=== PATIENT | male | born 1940 | race Two or more races ===

== ENCOUNTER 2024-10-31 12:27 | Inpatient (IN) | payer MEDICARE, OTHER ==
[~2024-10-31] VITALS: Ht 175.3 cm; Wt 97.5 kg
[2024-10-31] MEDS ORDERED: FUROSEMIDE 100 MG/10 ML VIAL ONE (13:02)
[2024-10-31 13:08] LABS: BASOPHILS % (AUTO) 0.3 % (0.0-2.0); HEMATOCRIT 46 % (39-51); HEMOGLOBIN 14.6 g/dL (13.5-17.5); LYMPHOCYTES # (AUTO) 0.5 K/uL (0.8-4.8); LYMPHOCYTES % (AUTO) 7.4 % (20.0-44.0); MEAN CORPUSCULAR HEMOGLOBIN 30 PG (26.0-33.0); MEAN CORPUSCULAR HGB CONC 32 g/dl (31.0-36.0); MEAN CORPUSCULAR VOLUME 92 fL (80-96); MONOCYTES # (AUTO) 0.6 K/uL (0.1-1.30); MONOCYTES % (AUTO) 8.6 % (2.0-12.0); NEUTROPHILS # (AUTO) 5.6 K/uL (1.8-8.9); NEUTROPHILS % (AUTO) 83.7 % (43.0-81.0); PLATELET COUNT (AUTO) 224 K/uL (150-450); RED BLOOD CELL COUNT(AUTO) 4.93 MIL/uL (4.5-6.0); RED CELL DISTRIBUTION WIDTH 16.5 % (11.5-15.0); WHITE BLOOD COUNT (AUTO) 6.7 K/uL (4.3-11.0)
[2024-10-31] MEDS: FUROSEMIDE 40 MG/4 ML VIAL IV ONE (13:17)
[2024-10-31 13:26] LABS: INR 1.09 (0.91-1.10); PARTIAL THROMBOPLASTIN TIME 27.7 SEC (24.3-34.3); PROTHROMBIN TIME 11.5 SECS (9.2-11.1)
[2024-10-31 13:49] LABS: ABG BASE EXCESS 5.6 mmol/L (-2.0-3.0); ABG OXYGEN SATURATION 93.5 % (94.0-98.0); ABG PCO2 69.5 mmHg (35.0-48.0); ABG PH 7.313 (7.350-7.450); ABG PO2 74.9 mmHg (83.0-108.0); COHb 1.2 % (0.5-1.5); MetHb 0.3 % (0.0-1.5); O2Hb 92.1 % (94.0-97.0)
[2024-10-31 14:02] LABS: ALANINE AMINOTRANSFERASE 21 U/L (12-78); ALBUMIN 3.5 g/dL (3.4-5.0); ALKALINE PHOSPHATASE 104 U/L (46-116); ASPARTATE AMINOTRANSFERASE 23 U/L (15-37); BILIRUBIN,DIRECT 0.2 mg/dL (0.0-0.2); BILIRUBIN,TOTAL 0.7 mg/dL (0.2-1.0); CALCIUM, SERUM 9.2 mg/dL (8.5-10.1); CARBON DIOXIDE 35 mmol/L (21-32); CHLORIDE 99 mmol/L (98-107); CREATININE 1.3 mg/dL (0.6-1.3); GLUCOSE 173 mg/dL (74-106); NT-PRO BNP 2679 pg/mL (0-125); POTASSIUM 4.9 mmol/L (3.5-5.1); SODIUM SERUM 137 mmol/L (136-145); TOTAL PROTEIN, SERUM 7.2 g/dL (6.4-8.2); UREA NITROGEN, BLOOD 18 mg/dL (7-18)
[2024-10-31] MEDS ORDERED: LEVO125T PO (17:31)
[2024-10-31] MEDS ORDERED: APIX5TAB PO (17:31)
[2024-10-31] MEDS ORDERED: DILT120C87 PO (17:31)
[2024-10-31] MEDS ORDERED: AMIO200T5 PO (17:31)
[2024-10-31] MEDS ORDERED: SITA100T PO (17:31)
[2024-10-31] MEDS ORDERED: LOSA50TA39 PO (17:31)
[2024-10-31] MEDS ORDERED: ROSU40TA23 PO (17:31)
[2024-10-31] MEDS ORDERED: METF-442 PO (17:31)
[2024-10-31] MEDS ORDERED: FURO20TA4 PO (17:31)
[2024-10-31] MEDS ORDERED: ACETAMINOPHEN 325 MG TABLET PO PRN (18:00)
[2024-10-31] MEDS ORDERED: ONDANSETRON HCL/PF 4 MG/2 ML VIAL IVP PRN (18:00)
[2024-10-31] MEDS: METFORMIN 500 MG TABLET PO SCH (18:34)
[2024-10-31] MEDS: APIXABAN 5 MG TABLET PO SCH (18:35)
[2024-10-31 20:00] VITALS: BP 129/50; TEMP 97.3; O2SAT 96
[2024-10-31] MEDS: ATORVASTATIN 40 MG TABLET PO SCH (21:10)
[2024-10-31 23:20] VITALS: O2SAT 85
[2024-11-01] VITALS (17 sets, daily range): BP systolic 107–130; BP diastolic 52–82; TEMP 97.5–98.6; O2SAT 90–99
[2024-11-01 00:31] LABS: ABG OXYGEN SATURATION 94.5 % (94.0-98.0); ABG PCO2 97.4 mmHg (35.0-48.0); ABG PH 7.229 (7.350-7.450); ABG PO2 83.6 mmHg (83.0-108.0); ABG TOTAL HEMOGLOBIN 14.8 G/dL (13.5-17.5); COHb 1.4 % (0.5-1.5); MetHb 0.3 % (0.0-1.5); O2Hb 92.9 % (94.0-97.0); SITE, ABG RIGHT BRACHIAL
[2024-11-01 08:02] LABS: BASOPHILS % (AUTO) 0.1 % (0.0-2.0); HEMATOCRIT 43 % (39-51); HEMOGLOBIN 13.5 g/dL (13.5-17.5); LYMPHOCYTES # (AUTO) 0.5 K/uL (0.8-4.8); LYMPHOCYTES % (AUTO) 6.7 % (20.0-44.0); MEAN CORPUSCULAR HEMOGLOBIN 30 PG (26.0-33.0); MEAN CORPUSCULAR HGB CONC 31 g/dl (31.0-36.0); MEAN CORPUSCULAR VOLUME 95 fL (80-96); MONOCYTES # (AUTO) 0.8 K/uL (0.1-1.30); MONOCYTES % (AUTO) 10.8 % (2.0-12.0); NEUTROPHILS # (AUTO) 6.1 K/uL (1.8-8.9); NEUTROPHILS % (AUTO) 82.4 % (43.0-81.0); PLATELET COUNT (AUTO) 181 K/uL (150-450); RED BLOOD CELL COUNT(AUTO) 4.54 MIL/uL (4.5-6.0); RED CELL DISTRIBUTION WIDTH 16.7 % (11.5-15.0); WHITE BLOOD COUNT (AUTO) 7.4 K/uL (4.3-11.0)
[2024-11-01] MEDS: LEVOTHYROXINE SODIUM 125 MCG TABLET PO SCH (08:06)
[2024-11-01] MEDS: AMIODARONE HCL 200 MG TABLET PO SCH (08:06)
[2024-11-01] MEDS: DILTIAZEM HCL CD 120 MG PO SCH (08:06)
[2024-11-01] MEDS: LINAGLIPTIN 5 MG TABLET PO SCH (08:07)
[2024-11-01] MEDS: LOSARTAN POTASSIUM 50 MG TABLET PO SCH (08:07)
[2024-11-01 08:44] LABS: ABG BASE EXCESS 6.2 mmol/L (-2.0-3.0); ABG OXYGEN SATURATION 96.6 % (94.0-98.0); ABG PCO2 83.6 mmHg (35.0-48.0); ABG PH 7.259 (7.350-7.450); ABG PO2 95.7 mmHg (83.0-108.0); ABG TOTAL HEMOGLOBIN 14.4 G/dL (13.5-17.5); COHb 1.4 % (0.5-1.5); MetHb 0.2 % (0.0-1.5); O2Hb 95.1 % (94.0-97.0); SITE, ABG RIGHT RADIAL
[2024-11-01 09:09] LABS: CREATININE 1.1 mg/dL (0.6-1.3); MAGNESIUM 2.2 mg/dL (1.8-2.4); PHOSPHORUS 3.9 mg/dL (2.5-4.9); POTASSIUM 4.7 mmol/L (3.5-5.1)
[2024-11-01] MEDS: FUROSEMIDE 40 MG/4 ML VIAL IV SCH (09:17)
[2024-11-01] MEDS: IPRATROPIUM NEB FS 0.5 MG/2.5 ML AMPUL.NEB NEB SCH (10:00)
[2024-11-01 10:15] LABS: ABG OXYGEN SATURATION 90.5 % (94.0-98.0); ABG PCO2 87.5 mmHg (35.0-48.0); ABG PH 7.243 (7.350-7.450); ABG PO2 67.7 mmHg (83.0-108.0); ABG TOTAL HEMOGLOBIN 14.7 G/dL (13.5-17.5); MetHb 0.4 % (0.0-1.5); O2Hb 89.2 % (94.0-97.0); SITE, ABG RIGHT RADIAL
[2024-11-01 12:59] LABS: ABG OXYGEN SATURATION 89.9 % (94.0-98.0); ABG PCO2 83.7 mmHg (35.0-48.0); ABG PH 7.269 (7.350-7.450); ABG PO2 63.2 mmHg (83.0-108.0); ABG TOTAL HEMOGLOBIN 14.9 G/dL (13.5-17.5); MetHb 0.4 % (0.0-1.5); O2Hb 88.6 % (94.0-97.0); SITE, ABG LEFT RADIAL
[2024-11-01 15:31] LABS: ABG BASE EXCESS 7.8 mmol/L (-2.0-3.0); ABG OXYGEN SATURATION 92.9 % (94.0-98.0); ABG PCO2 76.3 mmHg (35.0-48.0); ABG PH 7.306 (7.350-7.450); ABG PO2 69.4 mmHg (83.0-108.0); ABG TOTAL HEMOGLOBIN 14.2 G/dL (13.5-17.5); COHb 1.4 % (0.5-1.5); MetHb 0.4 % (0.0-1.5); O2Hb 91.2 % (94.0-97.0); SITE, ABG LEFT RADIAL
[2024-11-02] VITALS (27 sets, daily range): BP systolic 87–121; BP diastolic 39–82; TEMP 97.6–98.8; O2SAT 86–96
[2024-11-02 05:02] LABS: BASOPHILS % (AUTO) 0.1 % (0.0-2.0); EOSINOPHILS % (AUTO) 0.1 % (0.0-6.0); HEMATOCRIT 42 % (39-51); HEMOGLOBIN 13.1 g/dL (13.5-17.5); LYMPHOCYTES # (AUTO) 0.6 K/uL (0.8-4.8); MEAN CORPUSCULAR HEMOGLOBIN 29 PG (26.0-33.0); MEAN CORPUSCULAR HGB CONC 31 g/dl (31.0-36.0); MEAN CORPUSCULAR VOLUME 93 fL (80-96); MONOCYTES # (AUTO) 0.8 K/uL (0.1-1.30); MONOCYTES % (AUTO) 10.2 % (2.0-12.0); NEUTROPHILS # (AUTO) 6.5 K/uL (1.8-8.9); NEUTROPHILS % (AUTO) 81.6 % (43.0-81.0); PLATELET COUNT (AUTO) 195 K/uL (150-450); RED BLOOD CELL COUNT(AUTO) 4.54 MIL/uL (4.5-6.0); RED CELL DISTRIBUTION WIDTH 16.3 % (11.5-15.0)
[2024-11-02 05:38] LABS: ALANINE AMINOTRANSFERASE 12 U/L (12-78); ALBUMIN 2.9 g/dL (3.4-5.0); ALKALINE PHOSPHATASE 86 U/L (46-116); ASPARTATE AMINOTRANSFERASE 18 U/L (15-37); BILIRUBIN,TOTAL 0.6 mg/dL (0.2-1.0); CARBON DIOXIDE 39 mmol/L (21-32); CHLORIDE 101 mmol/L (98-107); GLUCOSE 77 mg/dL (74-106); MAGNESIUM 1.9 mg/dL (1.8-2.4); PHOSPHORUS 3.2 mg/dL (2.5-4.9); SODIUM SERUM 138 mmol/L (136-145); TOTAL PROTEIN, SERUM 6.2 g/dL (6.4-8.2); UREA NITROGEN, BLOOD 18 mg/dL (7-18)
[2024-11-02 05:46] LABS: CALCIUM, SERUM 8.7 mg/dL (8.5-10.1)
[2024-11-02 08:31] LABS: ABG BASE EXCESS 10.3 mmol/L (-2.0-3.0); ABG OXYGEN SATURATION 88.8 % (94.0-98.0); ABG PCO2 67.7 mmHg (35.0-48.0); ABG PH 7.372 (7.350-7.450); ABG PO2 56.4 mmHg (83.0-108.0); ABG TOTAL HEMOGLOBIN 14.1 G/dL (13.5-17.5); COHb 1.5 % (0.5-1.5); MetHb 0.2 % (0.0-1.5); O2Hb 87.3 % (94.0-97.0); SITE, ABG RIGHT RADIAL
[2024-11-02] MEDS ORDERED: BUMETANIDE INJ 4 MG in IV D5W 24 ML IV ONE (09:00)
[2024-11-02] MEDS: BUMETANIDE INJ 4 MG in IV NS 0.9% 24 ML IV ONE (09:26)
[2024-11-03] VITALS (14 sets, daily range): BP systolic 109–125; BP diastolic 51–60; TEMP 97.7–98.6; O2SAT 89–100
[2024-11-03] MEDS: GUAIFENESIN LA 600 MG TABLET.SA PO SCH (09:18)
[2024-11-03] MEDS: methylPREDNISolone SOD SUCC 40 MG/ML VIAL IV SCH (09:18)
[2024-11-03 10:19] LABS: BASOPHILS % (AUTO) 0.5 % (0.0-2.0); HEMATOCRIT 44 % (39-51); HEMOGLOBIN 13.6 g/dL (13.5-17.5); LYMPHOCYTES # (AUTO) 0.7 K/uL (0.8-4.8); LYMPHOCYTES % (AUTO) 7.9 % (20.0-44.0); MEAN CORPUSCULAR HEMOGLOBIN 29 PG (26.0-33.0); MEAN CORPUSCULAR HGB CONC 31 g/dl (31.0-36.0); MEAN CORPUSCULAR VOLUME 94 fL (80-96); MONOCYTES # (AUTO) 0.9 K/uL (0.1-1.30); MONOCYTES % (AUTO) 9.4 % (2.0-12.0); NEUTROPHILS # (AUTO) 7.4 K/uL (1.8-8.9); NEUTROPHILS % (AUTO) 82.2 % (43.0-81.0); PLATELET COUNT (AUTO) 201 K/uL (150-450); RED BLOOD CELL COUNT(AUTO) 4.67 MIL/uL (4.5-6.0); RED CELL DISTRIBUTION WIDTH 16.7 % (11.5-15.0); WHITE BLOOD COUNT (AUTO) 9.1 K/uL (4.3-11.0)
[2024-11-03 10:22] LABS: CALCIUM, SERUM 8.8 mg/dL (8.5-10.1); PHOSPHORUS 3.3 mg/dL (2.5-4.9); POTASSIUM 4.3 mmol/L (3.5-5.1)
[2024-11-03] MEDS: SIMETHICONE 80 MG TAB.CHEW PO SCH (12:07)
[2024-11-03] MEDS: DOCUSATE SODIUM 100 MG CAPSULE PO SCH (12:07)
[2024-11-03] MEDS: POLYETHYLENE GLYCOL 3350 17 GM POWD.PACK PO SCH (14:34)
[2024-11-03] MEDS: SENNOSIDES 8.6 MG TABLET PO SCH (21:28)
[2024-11-04] VITALS (12 sets, daily range): BP systolic 111–134; BP diastolic 52–91; TEMP 97.3–98.6; O2SAT 90–96
[2024-11-04 08:48] LABS: BASOPHILS % (AUTO) 0.4 % (0.0-2.0); HEMATOCRIT 45 % (39-51); HEMOGLOBIN 13.8 g/dL (13.5-17.5); LYMPHOCYTES # (AUTO) 0.2 K/uL (0.8-4.8); LYMPHOCYTES % (AUTO) 4.8 % (20.0-44.0); MEAN CORPUSCULAR HEMOGLOBIN 29 PG (26.0-33.0); MEAN CORPUSCULAR HGB CONC 31 g/dl (31.0-36.0); MEAN CORPUSCULAR VOLUME 94 fL (80-96); MONOCYTES # (AUTO) 0.1 K/uL (0.1-1.30); MONOCYTES % (AUTO) 2.5 % (2.0-12.0); NEUTROPHILS # (AUTO) 4.2 K/uL (1.8-8.9); NEUTROPHILS % (AUTO) 92.3 % (43.0-81.0); PLATELET COUNT (AUTO) 195 K/uL (150-450); RED BLOOD CELL COUNT(AUTO) 4.81 MIL/uL (4.5-6.0); RED CELL DISTRIBUTION WIDTH 16.7 % (11.5-15.0); WHITE BLOOD COUNT (AUTO) 4.5 K/uL (4.3-11.0)
[2024-11-04 09:00] LABS: CALCIUM, SERUM 9.4 mg/dL (8.5-10.1); POTASSIUM 4.9 mmol/L (3.5-5.1)
[2024-11-04] MEDS ORDERED: POLYETHYLENE GLYCOL 3350 17 GM POWD.PACK PO SCH (09:00)
[2024-11-04 09:07] LABS: ALBUMIN 3.1 g/dL (3.4-5.0); BILIRUBIN,TOTAL 0.5 mg/dL (0.2-1.0); MAGNESIUM 2.3 mg/dL (1.8-2.4); PHOSPHORUS 3.8 mg/dL (2.5-4.9)
[2024-11-04] MEDS: methylPREDNISolone SOD SUCC 40 MG/ML VIAL IV SCH (15:30)
[2024-11-05] VITALS (12 sets, daily range): BP systolic 100–132; BP diastolic 48–60; TEMP 97.2–98.6; O2SAT 91–98
[2024-11-05 07:49] LABS: BASOPHILS % (AUTO) 0.1 % (0.0-2.0); HEMATOCRIT 45 % (39-51); HEMOGLOBIN 13.7 g/dL (13.5-17.5); LYMPHOCYTES # (AUTO) 0.3 K/uL (0.8-4.8); MEAN CORPUSCULAR HEMOGLOBIN 29 PG (26.0-33.0); MEAN CORPUSCULAR HGB CONC 31 g/dl (31.0-36.0); MEAN CORPUSCULAR VOLUME 94 fL (80-96); MONOCYTES # (AUTO) 0.4 K/uL (0.1-1.30); MONOCYTES % (AUTO) 5.7 % (2.0-12.0); NEUTROPHILS # (AUTO) 6.9 K/uL (1.8-8.9); NEUTROPHILS % (AUTO) 90.2 % (43.0-81.0); PLATELET COUNT (AUTO) 202 K/uL (150-450); RED BLOOD CELL COUNT(AUTO) 4.78 MIL/uL (4.5-6.0); RED CELL DISTRIBUTION WIDTH 16.1 % (11.5-15.0); WHITE BLOOD COUNT (AUTO) 7.7 K/uL (4.3-11.0)
[2024-11-05 09:19] LABS: ALBUMIN 3.1 g/dL (3.4-5.0); BILIRUBIN,TOTAL 0.4 mg/dL (0.2-1.0); CALCIUM, SERUM 9.3 mg/dL (8.5-10.1); CREATININE 1.1 mg/dL (0.6-1.3); MAGNESIUM 2.5 mg/dL (1.8-2.4); POTASSIUM 5.1 mmol/L (3.5-5.1); TOTAL PROTEIN, SERUM 6.8 g/dL (6.4-8.2)
[2024-11-06] VITALS (12 sets, daily range): BP systolic 90–133; BP diastolic 45–73; TEMP 97.3–98.4; O2SAT 87–98
[2024-11-06] MEDS: FUROSEMIDE 40 MG/4 ML VIAL IV SCH (10:02)
[2024-11-06] MEDS: FUROSEMIDE 100 MG/10 ML VIAL IV SCH (10:06)
[2024-11-07] VITALS (10 sets, daily range): BP systolic 101–122; BP diastolic 48–82; TEMP 97.5–98.8; O2SAT 90–98
[2024-11-07 07:31] LABS: BASOPHILS % (AUTO) 0.2 % (0.0-2.0); HEMATOCRIT 44 % (39-51); HEMOGLOBIN 14.1 g/dL (13.5-17.5); LYMPHOCYTES # (AUTO) 0.5 K/uL (0.8-4.8); LYMPHOCYTES % (AUTO) 5.5 % (20.0-44.0); MEAN CORPUSCULAR HEMOGLOBIN 30 PG (26.0-33.0); MEAN CORPUSCULAR HGB CONC 32 g/dl (31.0-36.0); MEAN CORPUSCULAR VOLUME 93 fL (80-96); MONOCYTES # (AUTO) 0.8 K/uL (0.1-1.30); MONOCYTES % (AUTO) 8.8 % (2.0-12.0); NEUTROPHILS # (AUTO) 7.4 K/uL (1.8-8.9); NEUTROPHILS % (AUTO) 85.5 % (43.0-81.0); PLATELET COUNT (AUTO) 191 K/uL (150-450); RED CELL DISTRIBUTION WIDTH 16.3 % (11.5-15.0); WHITE BLOOD COUNT (AUTO) 8.7 K/uL (4.3-11.0)
[2024-11-07 08:18] LABS: ALBUMIN 3.1 g/dL (3.4-5.0); BILIRUBIN,TOTAL 0.7 mg/dL (0.2-1.0); CALCIUM, SERUM 9.6 mg/dL (8.5-10.1); CREATININE 0.9 mg/dL (0.6-1.3); MAGNESIUM 2.6 mg/dL (1.8-2.4); PHOSPHORUS 2.7 mg/dL (2.5-4.9); POTASSIUM 5.5 mmol/L (3.5-5.1); TOTAL PROTEIN, SERUM 6.6 g/dL (6.4-8.2)
[2024-11-08] VITALS (8 sets, daily range): BP systolic 104–134; BP diastolic 45–88; TEMP 97–98.4; O2SAT 90–98
[2024-11-08 11:41] LABS: ABG BASE EXCESS 15.7 mmol/L (-2.0-3.0); ABG OXYGEN SATURATION 92.2 % (94.0-98.0); ABG PCO2 73.5 mmHg (35.0-48.0); ABG PH 7.402 (7.350-7.450); ABG PO2 60.1 mmHg (83.0-108.0); ABG TOTAL HEMOGLOBIN 15.2 G/dL (13.5-17.5); COHb 1.5 % (0.5-1.5); MetHb 0.2 % (0.0-1.5); O2Hb 90.6 % (94.0-97.0); SITE, ABG LEFT RADIAL
[2024-11-09] VITALS (12 sets, daily range): BP systolic 106–126; BP diastolic 49–56; TEMP 97.5–98.6; O2SAT 90–96
[2024-11-09 07:12] LABS: BASOPHILS % (AUTO) 0.1 % (0.0-2.0); CALCIUM, SERUM 9.2 mg/dL (8.5-10.1); CREATININE 0.8 mg/dL (0.6-1.3); EOSINOPHILS % (AUTO) 0.3 % (0.0-6.0); HEMATOCRIT 44 % (39-51); HEMOGLOBIN 13.8 g/dL (13.5-17.5); LYMPHOCYTES # (AUTO) 0.5 K/uL (0.8-4.8); LYMPHOCYTES % (AUTO) 6.6 % (20.0-44.0); MEAN CORPUSCULAR HEMOGLOBIN 29 PG (26.0-33.0); MEAN CORPUSCULAR HGB CONC 31 g/dl (31.0-36.0); MEAN CORPUSCULAR VOLUME 92 fL (80-96); MONOCYTES # (AUTO) 0.6 K/uL (0.1-1.30); MONOCYTES % (AUTO) 7.4 % (2.0-12.0); NEUTROPHILS # (AUTO) 6.7 K/uL (1.8-8.9); NEUTROPHILS % (AUTO) 85.6 % (43.0-81.0); PLATELET COUNT (AUTO) 159 K/uL (150-450); POTASSIUM 5.4 mmol/L (3.5-5.1); RED BLOOD CELL COUNT(AUTO) 4.79 MIL/uL (4.5-6.0); RED CELL DISTRIBUTION WIDTH 16.5 % (11.5-15.0); WHITE BLOOD COUNT (AUTO) 7.8 K/uL (4.3-11.0)
[2024-11-10] VITALS (13 sets, daily range): BP systolic 113–160; BP diastolic 51–66; TEMP 97.9–98.8; O2SAT 88–96
[2024-11-11] VITALS (12 sets, daily range): BP systolic 124–135; BP diastolic 45–75; TEMP 97.7–98.2; O2SAT 88–98
[2024-11-11 07:02] LABS: BASOPHILS % (AUTO) 0.1 % (0.0-2.0); EOSINOPHILS % (AUTO) 0.1 % (0.0-6.0); HEMATOCRIT 45 % (39-51); HEMOGLOBIN 14.4 g/dL (13.5-17.5); LYMPHOCYTES # (AUTO) 0.8 K/uL (0.8-4.8); LYMPHOCYTES % (AUTO) 8.2 % (20.0-44.0); MEAN CORPUSCULAR HEMOGLOBIN 30 PG (26.0-33.0); MEAN CORPUSCULAR HGB CONC 32 g/dl (31.0-36.0); MEAN CORPUSCULAR VOLUME 94 fL (80-96); MONOCYTES # (AUTO) 0.7 K/uL (0.1-1.30); MONOCYTES % (AUTO) 7.8 % (2.0-12.0); NEUTROPHILS # (AUTO) 7.7 K/uL (1.8-8.9); NEUTROPHILS % (AUTO) 83.8 % (43.0-81.0); PLATELET COUNT (AUTO) 145 K/uL (150-450); RED BLOOD CELL COUNT(AUTO) 4.79 MIL/uL (4.5-6.0); RED CELL DISTRIBUTION WIDTH 16.4 % (11.5-15.0); WHITE BLOOD COUNT (AUTO) 9.2 K/uL (4.3-11.0)
[2024-11-11 07:13] LABS: CALCIUM, SERUM 8.9 mg/dL (8.5-10.1); CREATININE 0.9 mg/dL (0.6-1.3); POTASSIUM 5.2 mmol/L (3.5-5.1)
[2024-11-11] MEDS: APIXABAN 5 MG TABLET PO SCH (08:37)
[2024-11-12] VITALS (12 sets, daily range): BP systolic 122–141; BP diastolic 51–70; TEMP 97.2–99; O2SAT 92–99
[2024-11-12 08:08] LABS: CALCIUM, SERUM 8.9 mg/dL (8.5-10.1); CREATININE 0.8 mg/dL (0.6-1.3); POTASSIUM 5.4 mmol/L (3.5-5.1)
[2024-11-12] MEDS: BUMETANIDE INJ 16 MG in IV NS 0.9% 16 ML IV ONE (09:17)
[2024-11-12 09:56] LABS: BASOPHILS % (AUTO) 0.1 % (0.0-2.0); EOSINOPHILS % (AUTO) 0.1 % (0.0-6.0); HEMATOCRIT 45 % (39-51); HEMOGLOBIN 13.9 g/dL (13.5-17.5); LYMPHOCYTES # (AUTO) 0.7 K/uL (0.8-4.8); LYMPHOCYTES % (AUTO) 6.4 % (20.0-44.0); MEAN CORPUSCULAR HEMOGLOBIN 29 PG (26.0-33.0); MEAN CORPUSCULAR HGB CONC 31 g/dl (31.0-36.0); MEAN CORPUSCULAR VOLUME 94 fL (80-96); MONOCYTES # (AUTO) 0.9 K/uL (0.1-1.30); MONOCYTES % (AUTO) 7.5 % (2.0-12.0); NEUTROPHILS # (AUTO) 9.8 K/uL (1.8-8.9); NEUTROPHILS % (AUTO) 85.9 % (43.0-81.0); PLATELET COUNT (AUTO) 139 K/uL (150-450); RED BLOOD CELL COUNT(AUTO) 4.83 MIL/uL (4.5-6.0); RED CELL DISTRIBUTION WIDTH 16.5 % (11.5-15.0); WHITE BLOOD COUNT (AUTO) 11.4 K/uL (4.3-11.0)
[2024-11-13] VITALS (12 sets, daily range): BP systolic 123–139; BP diastolic 54–78; TEMP 97.9–98.9; O2SAT 92–98
[2024-11-13 07:10] LABS: BASOPHILS % (AUTO) 0.3 % (0.0-2.0); HEMATOCRIT 45 % (39-51); HEMOGLOBIN 14.1 g/dL (13.5-17.5); LYMPHOCYTES # (AUTO) 0.5 K/uL (0.8-4.8); LYMPHOCYTES % (AUTO) 4.9 % (20.0-44.0); MEAN CORPUSCULAR HEMOGLOBIN 29 PG (26.0-33.0); MEAN CORPUSCULAR HGB CONC 31 g/dl (31.0-36.0); MEAN CORPUSCULAR VOLUME 93 fL (80-96); MONOCYTES # (AUTO) 0.7 K/uL (0.1-1.30); MONOCYTES % (AUTO) 6.5 % (2.0-12.0); NEUTROPHILS # (AUTO) 9.8 K/uL (1.8-8.9); NEUTROPHILS % (AUTO) 88.3 % (43.0-81.0); PLATELET COUNT (AUTO) 141 K/uL (150-450); RED BLOOD CELL COUNT(AUTO) 4.86 MIL/uL (4.5-6.0); RED CELL DISTRIBUTION WIDTH 16.3 % (11.5-15.0); WHITE BLOOD COUNT (AUTO) 11.1 K/uL (4.3-11.0)
[2024-11-13 07:34] LABS: ALBUMIN 2.9 g/dL (3.4-5.0); BILIRUBIN,TOTAL 0.6 mg/dL (0.2-1.0); CALCIUM, SERUM 9.3 mg/dL (8.5-10.1); POTASSIUM 5.2 mmol/L (3.5-5.1); TOTAL PROTEIN, SERUM 6.6 g/dL (6.4-8.2)
[2024-11-14] VITALS (13 sets, daily range): BP systolic 104–120; BP diastolic 52–71; TEMP 97.9–98.4; O2SAT 89–95
[2024-11-14] MEDS: acetaZOLAMIDE 250 MG TABLET PO SCH (08:56)
[2024-11-14 09:15] LABS: ABG BASE EXCESS 16.6 mmol/L (-2.0-3.0); ABG OXYGEN SATURATION 94.4 % (94.0-98.0); ABG PCO2 92.1 mmHg (35.0-48.0); ABG PO2 73.7 mmHg (83.0-108.0); ABG TOTAL HEMOGLOBIN 14.1 G/dL (13.5-17.5); COHb 1.6 % (0.5-1.5); MetHb 0.1 % (0.0-1.5); O2Hb 92.8 % (94.0-97.0); SITE, ABG RIGHT RADIAL
[2024-11-14] MEDS: DILTIAZEM HCL CD 120 MG PO SCH (18:17)
[2024-11-15] VITALS (10 sets, daily range): BP systolic 97–101; BP diastolic 52–63; TEMP 97.9–98.6; O2SAT 92–96
[2024-11-15 06:58] LABS: POTASSIUM 4.3 mmol/L (3.5-5.1)
[2024-11-15 07:00] LABS: BASOPHILS % (AUTO) 0.4 % (0.0-2.0); EOSINOPHILS % (AUTO) 0.1 % (0.0-6.0); HEMATOCRIT 43 % (39-51); HEMOGLOBIN 13.4 g/dL (13.5-17.5); LYMPHOCYTES # (AUTO) 0.9 K/uL (0.8-4.8); LYMPHOCYTES % (AUTO) 11.3 % (20.0-44.0); MEAN CORPUSCULAR HEMOGLOBIN 29 PG (26.0-33.0); MEAN CORPUSCULAR HGB CONC 31 g/dl (31.0-36.0); MEAN CORPUSCULAR VOLUME 92 fL (80-96); MONOCYTES # (AUTO) 0.8 K/uL (0.1-1.30); MONOCYTES % (AUTO) 10.1 % (2.0-12.0); NEUTROPHILS # (AUTO) 6.2 K/uL (1.8-8.9); NEUTROPHILS % (AUTO) 78.1 % (43.0-81.0); PLATELET COUNT (AUTO) 189 K/uL (150-450); RED BLOOD CELL COUNT(AUTO) 4.69 MIL/uL (4.5-6.0); RED CELL DISTRIBUTION WIDTH 16.8 % (11.5-15.0); WHITE BLOOD COUNT (AUTO) 7.9 K/uL (4.3-11.0)
[2024-11-15] MEDS: DIGOXIN INJ 0.5 MG/2 ML AMPUL IV SCH (12:01)
== END 2024-11-15 19:10 | DRG 291 ==
LOC: ER 12:37 → TELE-TD 15:58 → ICU 11-01 13:33 → MED 11-02 18:34 → TELE-TD 11-02 18:50 → TELE1 11-03 09:54
PROVIDERS: ADMIT Nurse Practitioner Acute Care; ATTEND Internal Medicine
PROC: 5A09357 Assistance with Respiratory Ventilation, Less than 24 Consecutive Hours, Continuous Positive Airway Pressure (ICD-10-PCS; principal; 2024-11-01)
PROC: 5A09357 Assistance with Respiratory Ventilation, Less than 24 Consecutive Hours, Continuous Positive Airway Pressure (ICD-10-PCS; 2024-11-02)
PROC: 5A09357 Assistance with Respiratory Ventilation, Less than 24 Consecutive Hours, Continuous Positive Airway Pressure (ICD-10-PCS; 2024-11-04)
DX: I11.0 Hypertensive heart disease with heart failure (principal); I50.33 Acute on chronic diastolic (congestive) heart failure; J96.21 Acute and chronic respiratory failure with hypoxia; J96.22 Acute and chronic respiratory failure with hypercapnia; D68.59 Other primary thrombophilia; E66.2 Morbid (severe) obesity with alveolar hypoventilation; J90 Pleural effusion, not elsewhere classified; J98.11 Atelectasis; E87.3 Alkalosis; E03.9 Hypothyroidism, unspecified; E11.9 Type 2 diabetes mellitus without complications; E78.5 Hyperlipidemia, unspecified; E87.5 Hyperkalemia; I48.91 Unspecified atrial fibrillation; Z99.81 Dependence on supplemental oxygen; Z79.01 Long term (current) use of anticoagulants; Z68.31 Body mass index [BMI] 31.0-31.9, adult; J44.9 Chronic obstructive pulmonary disease, unspecified; Z79.84 Long term (current) use of oral hypoglycemic drugs; Z91.199 Patient's noncompliance with other medical treatment and regimen due to unspecified reason
CPT/HCPCS: 31720; 36415; 36600; 71045-TC; 71250-TC; 76604-TC; 80048-TC; 80053-TC; 80076-TC; 82803-TC; 83735-TC; 83880; 84100-TC; 84443-TC; 84484-TC; 85025-TC; 85730-TC; 93307-TC; 94760-TC; 94761-TC; 94762-TC; 94799-TC; 97110-TC; 97116-TC; 97530-TC; 99082-TC; A4223; G0378; J1160; J1938; J2919; J3490; J7030; J7050; J7060